=== PATIENT | male | born 1950 | race Caucasian/White ===

== ENCOUNTER 2016-10-25 18:31 | Inpatient (IN) | payer MEDICAID, OTHER ==
[~2016-10-25] VITALS: Ht 177.8 cm; Wt 89.8 kg
[~2016-10-25 18:31] MED LIST: CLON0.1T PO; PRAV10TA35 PO; SEVE800T8 PO
[2016-10-25] MEDS ORDERED: ALBUTEROL (0.083%) 2.5MG/3ML NEB HHN STA (21:21)
[2016-10-25] MEDS ORDERED: IPRATROPIUM BROMIDE (0.02%) 0.5MG/2.5ML NEB HHN STA (21:21)
[2016-10-25] MEDS ORDERED: LEVOFLOXACIN 500MG PREMIX 100 ML IV ONE (21:30)
[2016-10-25] MEDS ORDERED: VANCOMYCIN 1 G PREMIX 200 ML IV ONE (21:30)
[2016-10-25] MEDS ORDERED: ALBUTEROL (0.5%) 2.5MG/0.5ML NEB HHN ONE (21:40)
[2016-10-25] MEDS ORDERED: ACETAMINOPHEN 325MG TABLET PO ONE (22:00)
[2016-10-25] MEDS ORDERED: DEXTROSE 50% WATER 50ML SYRINGE IV PRN (22:45)
[2016-10-25] MEDS ORDERED: MAGNESIUM/ALUMINUM HYDROXIDE/SIMETHICONE 30ML UDC PO PRN (22:45)
[2016-10-25] MEDS: AMLODIPINE 10MG TABLET PO SCH (22:45)
[2016-10-25] MEDS ORDERED: IPRATROPIUM/ALBUTEROL 0.5-3(2.5)MG/3ML NEB INH PRN (22:45)
[2016-10-25] MEDS ORDERED: DIPHENHYDRAMINE 50MG/ML VIAL IV PRN (22:45)
[2016-10-25] MEDS ORDERED: TRAMADOL 50MG TABLET PO PRN (22:45)
[2016-10-25] MEDS ORDERED: CLONIDINE 0.1MG TABLET PO PRN (22:45)
[2016-10-25] MEDS ORDERED: NITROGLYCERIN 0.4MG TABLET SL SL PRN (22:45)
[2016-10-25] MEDS ORDERED: VANCOMYCIN 1 G PREMIX 200 ML IV SCH (22:45)
[2016-10-25] MEDS ORDERED: LORAZEPAM 2MG/ML CPJ IV PRN (22:45)
[2016-10-25] MEDS ORDERED: ACETAMINOPHEN 325MG TABLET PO PRN (22:45)
[2016-10-25] MEDS ORDERED: PIPERACILLIN/TAZ 3.375G PREMIX 50 ML IV SCH (22:45)
[2016-10-25] MEDS ORDERED: ONDANSETRON HCL 4MG/2ML VIAL IV PRN (22:45)
[2016-10-25] MEDS ORDERED: GUAIFENESIN 200MG/10ML SUGAR FREE UDC PO PRN (22:45)
[2016-10-25] MEDS ORDERED: ZOLPIDEM TARTRATE 5MG TABLET PO PRN (22:45)
[2016-10-25 22:50] LABS: HEMATOCRIT. 29.1 % (42.0-52.0); HEMOGLOBIN. 9.3 g/dL (14.0-18.0); MEAN CORPUSCULAR HEMOGLOBIN 27.6 pg (28.0-32.0); MEAN CORPUSCULAR VOLUME 85.9 fL (80.0-94.0); MEAN PLATELET VOLUME 8.1 fl (7.4-10.4); PLATELET 216 x1000/uL (130-400); RED BLOOD CELL COUNT 3.38 mill/uL (4.7-6.1)
[2016-10-25 22:54] LABS: CHLORIDE 94 mEq/L (98-107)
[2016-10-25 22:57] LABS: INR 1.2; PARTIAL THROMBOPLASTIN TIME 29.2 sec (23.4-31.0)
[2016-10-25] MEDS: HYDRALAZINE HCL 50MG TABLET PO SCH (23:00)
[2016-10-25 23:01] LABS: CARBON DIOXIDE 27 mEq/L (21-32)
[2016-10-25 23:03] LABS: TROPONIN I < 0.02 ng/mL (0.00-0.04)
[2016-10-25 23:07] LABS: PLATELET ESTIMATE NORMAL
[2016-10-25] MEDS ORDERED: SODIUM BICARBONATE 8.4% 1 MEQ/ML 50ML SYR IV ONE (23:15)
[2016-10-25] MEDS ORDERED: CALCIUM CHLORIDE 1GM/10ML SYR IV ONE (23:15)
[2016-10-25] MEDS ORDERED: DEXTROSE 50% WATER 50ML SYRINGE IV ONE (23:15)
[2016-10-25] MEDS ORDERED: INSULIN REGULAR (HUMULIN R) 300UNITS/3ML IV ONE (23:15)
[2016-10-25] MEDS ORDERED: SODIUM POLYSTYRENE SULFONATE 15 G/60 ML BOT PO ONE (23:15)
[2016-10-26] VITALS (7 sets, daily range): BP systolic 113–198; BP diastolic 63–90
[2016-10-26] MEDS ORDERED: IPRATROPIUM/ALBUTEROL 0.5-3(2.5)MG/3ML NEB INH PRN
[2016-10-26] MEDS ORDERED: ENOXAPARIN 40MG/0.4ML SYR SUBCUT SCH
[2016-10-26] MEDS ORDERED: DOCUSATE SODIUM 100MG CAPSULE PO PRN
[2016-10-26] MEDS ORDERED: LORAZEPAM 0.5MG TABLET PO PRN
[2016-10-26] MEDS ORDERED: DIPHENHYDRAMINE 50MG/ML VIAL IV PRN
[2016-10-26] MEDS ORDERED: ACETAMINOPHEN 325MG TABLET PO PRN
[2016-10-26] MEDS ORDERED: MAGNESIUM/ALUMINUM HYDROXIDE/SIMETHICONE 30ML UDC PO PRN
[2016-10-26] MEDS ORDERED: GUAIFENESIN 200MG/10ML SUGAR FREE UDC PO PRN
[2016-10-26] MEDS ORDERED: CLONIDINE 0.1MG TABLET PO PRN
[2016-10-26] MEDS: IPRATROPIUM/ALBUTEROL 0.5-3(2.5)MG/3ML NEB HHN SCH ×5 (04:36→20:18)
[2016-10-26] MEDS: HYDRALAZINE HCL 50MG TABLET PO SCH ×2 (06:00→09:30)
[2016-10-26] MEDS: PIPERACILLIN/TAZ 2.25G PREMIX 50 ML IV SCH ×3 (06:00→22:04)
[2016-10-26 07:37] LABS: CHLORIDE 93 mEq/L (98-107)
[2016-10-26] MEDS: INSULIN LISPRO 100 UNITS/ML SUBCUT SCH ×4 (07:50→21:00)
[2016-10-26] MEDS ORDERED: SEVELAMER CARBONATE 800 MG TABLET PO SCH (07:50)
[2016-10-26 07:56] LABS: HEMATOCRIT. 27.2 % (42.0-52.0); HEMOGLOBIN. 8.8 g/dL (14.0-18.0); MEAN CORPUSCULAR HEMOGLOBIN 27.8 pg (28.0-32.0); MEAN CORPUSCULAR VOLUME 86.2 fL (80.0-94.0); MEAN PLATELET VOLUME 7.6 fl (7.4-10.4); PLATELET 184 x1000/uL (130-400); RED BLOOD CELL COUNT 3.15 mill/uL (4.7-6.1); RED CELL DISTRIBUTION WIDTH 15.8 % (11.6-14.6)
[2016-10-26] MEDS: BLOOD SUGAR DIAGNOSTIC STRIP TEST SCH ×4 (07:59→21:28)
[2016-10-26 08:29] LABS: CARBON DIOXIDE 26 mEq/L (21-32); CREATINE KINASE 106 IU/L (39-308); CREATINE KINASE MB FRACTION 1.3 ng/mL (0.5-3.6); TROPONIN I < 0.02 ng/mL (0.00-0.04)
[2016-10-26] MEDS: AMLODIPINE 10MG TABLET PO SCH (08:44)
[2016-10-26] MEDS ORDERED: ASPIRIN 325MG EC TABLET PO SCH (09:00)
[2016-10-26] MEDS: ENOXAPARIN 30MG/0.3ML SYR SUBCUT SCH (09:00)
[2016-10-26] MEDS: FAMOTIDINE 20MG/2ML VIAL IV SCH (09:25)
[2016-10-26] MEDS ORDERED: PNEUMOCOCCAL 23-VAL P-SAC VAC 0.5 ML IM ONE (10:00)
[2016-10-26] MEDS ORDERED: INFLUENZA VIRUS VACCINE 0.5ML SYR IM ONE (10:00)
[2016-10-26] MEDS: VANCOMYCIN 1 G PREMIX 200 ML IV NR ×2 (13:14→13:47)
[2016-10-26] MEDS: SEVELAMER CARBONATE 800 MG TABLET PO SCH ×3 (13:15→22:04)
[2016-10-26] MEDS: CLONIDINE 0.1MG TABLET PO SCH ×2 (14:59→22:00)
[2016-10-26] MEDS: HYDRALAZINE HCL 100MG TABLET PO SCH ×3 (15:00→22:09)
[2016-10-26] MEDS: NIFEDIPINE XL 60MG TAB PO SCH (15:00)
[2016-10-26 16:24] LABS: PLATELET ESTIMATE NORMAL
[2016-10-26] MEDS ORDERED: MEDICATION NOT ON FORMULARY EA (Pravastatin Sodium 1 TAB) PO SCH (17:00)
[2016-10-26 17:49] LABS: CREATINE KINASE 87 IU/L (39-308); CREATINE KINASE MB FRACTION 1.1 ng/mL (0.5-3.6); TROPONIN I < 0.02 ng/mL (0.00-0.04)
[2016-10-26] MEDS ORDERED: CLONIDINE 0.1MG TABLET PO SCH (21:00)
[2016-10-26] MEDS ORDERED: ATORVASTATIN CALCIUM 10MG TABLET PO SCH (21:00)
[2016-10-27] MEDS: IPRATROPIUM/ALBUTEROL 0.5-3(2.5)MG/3ML NEB HHN SCH ×4 (00:25→12:09)
[2016-10-27] MEDS: CLONIDINE 0.1MG TABLET PO SCH ×2 (06:00→14:00)
[2016-10-27] MEDS: HYDRALAZINE HCL 100MG TABLET PO SCH ×2 (06:00→14:00)
[2016-10-27] MEDS: PIPERACILLIN/TAZ 2.25G PREMIX 50 ML IV SCH ×2 (07:15→14:00)
[2016-10-27] MEDS: BLOOD SUGAR DIAGNOSTIC STRIP TEST SCH ×2 (07:20→12:20)
[2016-10-27] MEDS: INSULIN LISPRO 100 UNITS/ML SUBCUT SCH ×2 (07:50→12:50)
[2016-10-27 08:00] VITALS: BP 155/68
[2016-10-27 08:04] LABS: BASOPHILS % 0.1 % (0.0-2.0); EOSINOPHILS % 1.9 % (0.0-5.0); HEMATOCRIT. 27.7 % (42.0-52.0); HEMOGLOBIN. 9.1 g/dL (14.0-18.0); LYMPHOCYTES % 8.8 % (20.0-50.0); MEAN CORPUSCULAR HEMOGLOBIN 28.3 pg (28.0-32.0); MEAN CORPUSCULAR VOLUME 86.2 fL (80.0-94.0); MEAN PLATELET VOLUME 7.8 fl (7.4-10.4); MONOCYTES % 6.7 % (2.0-8.0); NEUTROPHILS % 82.5 % (40.0-76.0); PLATELET 174 x1000/uL (130-400); RED BLOOD CELL COUNT 3.21 mill/uL (4.7-6.1); RED CELL DISTRIBUTION WIDTH 15.8 % (11.6-14.6)
[2016-10-27] MEDS ORDERED: ASPIRIN 81MG EC TABLET PO SCH (09:00)
[2016-10-27] MEDS: NIFEDIPINE XL 60MG TAB PO SCH (09:44)
[2016-10-27] MEDS: ENOXAPARIN 30MG/0.3ML SYR SUBCUT SCH (09:46)
[2016-10-27] MEDS ORDERED: LEVOFLOXACIN 250MG TABLET PO SCH (11:00)
[2016-10-27 12:37] VITALS: BP 153/68
[2016-10-27] MEDS: FAMOTIDINE 20MG/2ML VIAL IV SCH (12:47)
[2016-10-27] MEDS: SEVELAMER CARBONATE 800 MG TABLET PO SCH (12:52)
[2016-10-27 16:36] VITALS: BP 170/86
[2016-10-27 16:55] VITALS: BP 136/82
== END 2016-10-27 17:30 | disposition home or self-care (01) | DRG 720 ==
LOC: ER 19:04 → 6WST 21:27 → OBSVTOIN 21:27 → INTOOBSV 21:27 → EDBEDREQ 22:31 → SUPCPDRO 23:40 → EDBEDREQ 23:59 → ENRESERV 10-26 00:14
PROVIDERS: ADMIT Family Medicine Adult Medicine; ATTEND Family Medicine Adult Medicine
PROC: 5A1D60Z (ICD-10-PCS; principal; 2016-10-26)
DX: A41.9 Sepsis, unspecified organism (principal); J96.01 Acute respiratory failure with hypoxia; I13.2 Hypertensive heart and chronic kidney disease with heart failure and with stage 5 chronic kidney disease, or end stage renal disease; N18.6 End stage renal disease; I27.2 Other secondary pulmonary hypertension; J12.9 Viral pneumonia, unspecified; E11.22 Type 2 diabetes mellitus with diabetic chronic kidney disease; I50.9 Heart failure, unspecified; E87.5 Hyperkalemia; E87.6 Hypokalemia; D63.8 Anemia in other chronic diseases classified elsewhere; F29 Unspecified psychosis not due to a substance or known physiological condition; Z79.4 Long term (current) use of insulin; Z82.49 Family history of ischemic heart disease and other diseases of the circulatory system; Z83.3 Family history of diabetes mellitus; Z87.891 Personal history of nicotine dependence; Z99.2 Dependence on renal dialysis; Z79.899 Other long term (current) drug therapy; E44.1 Mild protein-calorie malnutrition; R65.20 Severe sepsis without septic shock
CPT/HCPCS: 36415; 71010; 80048; 80053; 80061; 82550; 82553; 82962; 83036; 83605; 83735; 84100; 84132; 84484; 85025; 85610; 85730; 87040; 87070; 87804; 93005; 93306; 93970; 94640; 94644; 94664; 96365; 99285; J1650; J1956; J2543; J3370; J3490; J7030; J7050; J7611; J7620

== ENCOUNTER 2021-01-31 20:00 | Inpatient (IN) | payer MEDICAID, OTHER ==
[~2021-01-31] VITALS: Ht 177.8 cm; Wt 81.2 kg
[2021-01-31 21:46] LABS: CHLORIDE 104 mEq/L (98-107)
[2021-01-31 21:48] LABS: BASOPHILS % 0.8 % (0.0-2.0); EOSINOPHILS % 1.5 % (0.0-5.0); HEMATOCRIT. 36.4 % (42.0-52.0); HEMOGLOBIN. 11.4 g/dL (14.0-18.0); LYMPHOCYTES % 8.6 % (20.0-50.0); MEAN CORPUSCULAR HEMOGLOBIN 29.8 pg (28.0-32.0); MEAN CORPUSCULAR VOLUME 95.2 fL (80.0-94.0); MEAN PLATELET VOLUME 9.6 fl (7.4-10.4); MONOCYTES % 8.3 % (2.0-8.0); NEUTROPHILS % 80.8 % (40.0-76.0); PLATELET 52 x1000/uL (130-400); RED BLOOD CELL COUNT 3.82 mill/uL (4.7-6.1); RED CELL DISTRIBUTION WIDTH 17.7 % (11.6-14.6)
[2021-01-31 21:53] LABS: INR 1.3; PARTIAL THROMBOPLASTIN TIME 42.7 sec (23.4-31.0); PROTHROMBIN TIME 13.4 sec (9.6-11.0)
[2021-02-01] MEDS ORDERED: CLONIDINE 0.1MG TABLET PO PRN (00:15)
[2021-02-01] MEDS ORDERED: ACETAMINOPHEN 325MG TABLET PO PRN (00:15)
[2021-02-01] MEDS ORDERED: DOCUSATE SODIUM 100MG CAPSULE PO PRN (00:15)
[2021-02-01] MEDS ORDERED: ENOXAPARIN 40MG/0.4ML SYR SUBCUT SCH (00:15)
[2021-02-01] MEDS ORDERED: MAGNESIUM/ALUMINUM HYDROXIDE/SIMETHICONE 30ML UDC PO PRN (00:15)
[2021-02-01] MEDS ORDERED: ONDANSETRON HCL 4MG/2ML INJ IV PRN (00:15)
[2021-02-01] MEDS ORDERED: HYDROCODONE/ACETAMINOPHEN 5/325MG TABLET PO PRN (00:15)
[2021-02-01] MEDS ORDERED: GUAIFENESIN 200MG/10ML SUGAR FREE UDC PO PRN (00:15)
[2021-02-01] MEDS ORDERED: ASPIRIN 81MG TABLET PO ONE (01:00)
[2021-02-01 08:30] VITALS: BP 107/48
[2021-02-01] MEDS ORDERED: AMLODIPINE 10MG TABLET PO SCH (09:00)
[2021-02-01] MEDS ORDERED: ASPIRIN 81MG EC TABLET PO SCH (09:00)
[2021-02-01] MEDS ORDERED: NALOXONE HCL 0.4MG/ML VIAL IV PRN (09:15)
[2021-02-01 11:48] VITALS: BP 92/38
[2021-02-01 15:15] VITALS: BP 92/38
== END 2021-02-01 16:00 | disposition home or self-care (01) | DRG 194 ==
LOC: ER 20:00 → 6WST 22:53 → EDBEDREQTM 22:54 → EDBEDREQ 22:54 → ENRESERV 02-01 07:23
PROVIDERS: ADMIT Hospitalist; ATTEND Hospitalist
DX: I13.2 Hypertensive heart and chronic kidney disease with heart failure and with stage 5 chronic kidney disease, or end stage renal disease (principal); G93.40 Encephalopathy, unspecified; E43 Unspecified severe protein-calorie malnutrition; N18.6 End stage renal disease; E11.22 Type 2 diabetes mellitus with diabetic chronic kidney disease; D64.9 Anemia, unspecified; F17.200 Nicotine dependence, unspecified, uncomplicated; Z20.822 Contact with and (suspected) exposure to COVID-19; I50.33 Acute on chronic diastolic (congestive) heart failure; Z99.2 Dependence on renal dialysis; Z79.899 Other long term (current) drug therapy; Z68.25 Body mass index [BMI] 25.0-25.9, adult; Z90.5 Acquired absence of kidney; Z85.528 Personal history of other malignant neoplasm of kidney
CPT/HCPCS: 36415; 71045; 80053; 82962; 83880; 84484; 85025; 87426; 93005; 93970; 97162; 99291